=== PATIENT | female | born 1970 | race Caucasian/White ===

== ENCOUNTER → 2016-07-16 | Outpatient (CLI) | payer OTHER | LOC: FIMAGING 14:39 | DX: Z12.31 Encounter for screening mammogram for malignant neoplasm of breast (principal) | CPT/HCPCS: G0202 ==

== ENCOUNTER 2016-09-15 14:54 | Day surgery (SDC) | payer OTHER ==
[2016-09-15] MEDS ORDERED: LIDOCAINE 1% 2 ML INJ ONE (15:19)
[2016-09-15] MEDS ORDERED: LIDOCAINE 1% 5 ML SDV ID PRN (15:21)
[2016-09-15] MEDS ORDERED: LR 1,000 ML IV ONE (15:21)
[2016-09-15] MEDS ORDERED: LIDOCAINE 2% 5 ML SDV ONE (15:22)
[2016-09-15] MEDS ORDERED: PROPOFOL/EMULSION 500 MG/50 ML BOTTLE IV ONE (15:23)
--- NOTE | 2016-09-15 21:03 | GOP ---
[f rep st] OPERATIVE REPORT DATE OF OPERATION: SURGEON: Jasen Barragan MD PREOPERATIVE DIAGNOSIS: Nausea, vomiting. POSTOPERATIVE DIAGNOSIS: 1. Nausea, vomiting. 2. Mild gastritis. PROCEDURE PERFORMED: FINDINGS: INDICATIONS: The patient is a 45-year-old female with acute worsening of chronic nausea and vomitin g, here for upper endoscopy for further evaluation. The risks and the benefits of the procedure wer e discussed with the patient. Consent obtained. Risks include, but not limited to, bleeding, perfo ration, risks associated with sedation. The patient is ASA class 3. DESCRIPTION OF PROCEDURE: The end-viewing endoscope inserted into the esophagus, into stomach and t he second portion of the duodenum. The esophagus is normal. The GE junction is located at 40 cm fr om the incisors. There is no evidence of Worley's esophagitis or varices. The stomach shows diffu se erythema, which is mild. Biopsies are taken using cold biopsy forceps to evaluate for Helicobact er pylori. The duodenum and second portion is normal. Biopsies are taken to evaluate for celiac di sease using cold biopsy forceps. PROCEDURE: Esophagogastroduodenoscopy with biopsies. MEDICATIONS: Monitored anesthesia care. IMPRESSION: 1. Mild stomach gastritis, status post biopsy using cold biopsy forceps. 2. Normal duodenum. 3. Normal esophagus. RECOMMENDATIONS: 1. Discharge home with escort. 2. Advance diet as tolerated. 3. Continue current medications. 4. Follow up with referring provider for nausea, vomiting. 5. Thank you for allowing me to participate in the care of your patient. Please do not hesitate to call with questions. /[id number]/MODL
== END 2016-09-15 16:27 | disposition home or self-care (01) ==
LOC: FSGY 14:54
PROVIDERS: ATTEND Internal Medicine Gastroenterology
PROC: 0DB68ZX Excision of Stomach, Via Natural or Artificial Opening Endoscopic, Diagnostic (ICD-10-PCS; principal; 2016-09-15 16:00)
PROC: 0DB98ZX Excision of Duodenum, Via Natural or Artificial Opening Endoscopic, Diagnostic (ICD-10-PCS; principal; 2016-09-15 16:00)
DX: K29.70 Gastritis, unspecified, without bleeding (principal); K29.80 Duodenitis without bleeding; F31.9 Bipolar disorder, unspecified; E03.9 Hypothyroidism, unspecified; R25.1 Tremor, unspecified
CPT/HCPCS: J2704

== ENCOUNTER 2016-09-19 16:01 | Emergency (ER) | payer OTHER ==
--- NOTE | 2016-09-19 16:19 | EDPHY ---
H & P - Medical/Surgical History Hx Diabetes: No - Social History Smoking Status: Never smoked Constitutional: Initial Vital Signs Temperature (C) 36.5 C 09/19/16 16:01 Heart Rate 87 09/19/16 16:01 Respiratory Rate 12 09/19/16 16:01 Blood Pressure 127/93 H 09/19/16 16:01 O2 Sat (%) 99 09/19/16 16:01 O2 Delivery Mode Room Air Allergies/Adverse Reactions: scopolamine [Scopolamine] Allergy (Severe, Verified 09/12/16 10:31) PSYCHOTIC EPISODES levofloxacin [From Levaquin] Allergy (Verified 09/12/16 10:30) Sulfa (Sulfonamide Antibiotics) Allergy (Verified 09/12/16 10:31) Other-Enter Comments Home Medications: Medication Instructions Recorded Albuterol 07/07/16 CLONAZEPAM 07/07/16 Carisoprodol 07/07/16 Flovent Diskus 07/07/16 Fluconazole 07/07/16 Herbals/Supplements -Info Only 07/07/16 Ketamine 07/07/16 [place] Aspartate 07/07/16 Movantik 07/07/16 Nuedexta 20-10 mg Capsule 07/07/16 PROMETHAZINE HCL 07/07/16 Pantoprazole Sodium 07/07/16 Prazosin HCl 07/07/16 Propranolol HCl 07/07/16 Senna 07/07/16 Sonata 07/07/16 Vyvanse 07/07/16 Zofran 07/07/16 Zyprexa 07/07/16 ARMOUR THYROID 09/12/16 Fentanyl 09/12/16 LAMOTRIGINE 09/12/16 Trileptal 09/12/16 buPROPion 09/12/16 Medical Decision Making ED Course/Re-evaluation: CHIEF COMPLAINT: Polypharmacy overdose HISTORY OF PRESENT ILLNESS: The patient is a 45 y/o female arriving emergently from the [facility] via EMS with somnolence for intentional polypharmacy overdose today. EMS reports she had a suicide note and diary on her bedside with specific research and notes regarding which prescriptions she should take in what quantities to produce a lethal dose. She also had several suicide notes alongside her medications. For EMS, she has been somnolent but oriented and vomiting. For me, she has slurred speech and complains of diarrhea. From patient's journal: "Which order to take the drugs in (most to least lethal) 1. Drink all of my [place] 2. Take all of my soma 3. Take all of my Depakote 4. Take all of my Trazodone Ideally: 5. Take all of my Klonopin 6. Take all of my Prozac 7. Take all of my Wellbutrin 8. Take all of my Zyprexa" REVIEW OF SYSTEMS: A 10 point review of systems was performed and is negative with the exception of the elements mentioned in the history of present illness. PHYSICAL EXAM: General Appearance: Somnolent, well hydrated, Head: Atraumatic without scalp tenderness or obvious injury Eyes: Pupils equal, round, reactive to light and accommodation, EOMI, no trauma , no injection. Nose: Atraumatic, no rhinorrhea, clear. Throat: mucus membranes moist. Neck: Supple, non-tender, no lymphadenopathy. Respiratory: No retractions, no distress, no wheezes, and no accessory muscle use. Lungs are clear to auscultation bilaterally. Cardiovascular: Regular rate and rhythm, no murmurs, rubs, or gallops. Good capillary refill all extremities. Gastrointestinal: Abdomen is soft, non-tender, non-distended, no masses, no rebound, no guarding, no peritoneal signs. Musculoskeletal: Normal active ROM of all extremities, atraumatic. Neurological: Alert, appropriate, and interactive. Slurred speech. Nonfocal neuro exam. Skin: No rashes, good turgor, no nodules on palpation. PAST MEDICAL HISTORY: Bipolar disorder, depression, asthma PAST SURGICAL HISTORY: Unknown SOCIAL HISTORY: Staying in [facility] currently. . DIAGNOSTICS/PROCEDURES/CRITICAL CARE TIME: The 12 lead EKG was interpreted by myself. Sinus rhythm rate 66. See hard copy and/or "tracemaster" electronic copy for interpretation. DIFFERENTIAL DIAGNOSIS: The differential diagnosis for the patient's depression and suicide attempt included but was not limited to intentional polypharm overdose, lithium toxicity, functional and major depression, situational depression, medication side effect, drugs, and alcohol abuse. MEDICAL DECISION MAKING: This is a 45 y/o female with a history of bipolar disorder and depression who presents with somnolence following intentional polypharmacy overdose. Notes on scene that were transported with the patient to the ED show clear pre-mediation of patient's intent to cause lethal overdose. Full list of medications found at the scene and also transferred with the patient below. She is somnolent with slurred speech, but oriented on exam. No gross neurologic deficits and vitals WNL. She will require close management and labs for any medications we are able to check levels on. Most concerning is half of her 8meq/5mL [place] bottle that was filled on 09/03/16 has been consumed. She also has several benzodiazepines, amphetamines, muscle relaxants, antipsychotics, and Suboxone among her medications. No beta blockers were found with her. IV established by EMS. CBC, CHEM, LFTs, phosphorus, Depakote, [place], Salicylate, EtOH, Acetaminophen, and drug tox screen ordered. Patient placed on icing maker. Will continue to run IV fluids and monitor chemistries closely. List of medications found on scene next to patient's suicide note: [place] solution Bupropion Divalproex Prazosin Nuedexta Suboxone carisoprodol fluoxetine/Prozac Zofran amphetamine salts trazodone clonazepam Lamictal olanzapine Vyvanse Zaleplon Singulair armor thyroid Belsomra Linzess 1645: [place] extremely elevated at 6.2. Electrolytes are okay currently. She may require dialysis. Nephrology paged. We have bed shortage here and she may require transfer. 1700: Consulted with Dr. Carlson, construction job cost estimator. She will dialyze patient tonight at [facility]. We will place a dialysis catheter and have her urgently transferred to [facility]. Dr. Silverman, surgeon, will place dialysis catheter prior to transfer. 1715: Spoke with [facility] ED physician, Dr. Silvio Faith. He accepts transfer and confirms they have an ICU bed available for her. Critical care time spent by me, Dr. Cervantes, exclusively with this patient was 60 minutes, exclusive of PA time and exclusive of procedures. The organ system at risk was cardiovascular and neurovascular and I gave IV fluids, glucose, ordered appropriate toxicity levels, reviewed toxicity and management of patient 's multiple medications, and urgently transferred the patient to a construction job cost estimator for dialysis and ICU management at [facility] to prevent worsening of the patient's condition. - Data Points Laboratory Results: Laboratory Results 09/19/16 16:00 09/19/16 16:00 09/19/16 09/19/16 16:00 16:00 WBC 14.68 10^3/uL H 10^3/uL (3.80-9.50) RBC 5.18 10^6/uL 10^6/uL (4.18-5.33) Hgb 15.4 g/dL g/dL (12.6-16.3) Hct 46.7 % % (38.0-47.0) MCV 90.2 fL fL (81.5-99.8) MCH 29.7 pg pg (27.9-34.1) MCHC 33.0 g/dL g/dL (32.4-36.7) RDW 13.3 % % (11.5-15.2) Plt Count 344 10^3/uL 10^3/uL (150-400) MPV 9.6 fL fL (8.7-11.7) Neut % (Auto) 81.2 % H % (39.3-74.2) Lymph % (Auto) 12.9 % L % (15.0-45.0) [place] % (Auto) 4.4 % L % (4.5-13.0) Eos % (Auto) 0.5 % L % (0.6-7.6) Baso % (Auto) 0.4 % % (0.3-1.7) Nucleat RBC Rel Count 0.0 % % (0.0-0.2) Absolute Neuts (auto) 11.91 10^3/uL H 10^3/uL (1.70-6.50) Absolute Lymphs (auto) 1.89 10^3/uL 10^3/uL (1.00-3.00) Absolute Monos (auto) 0.65 10^3/uL 10^3/uL (0.30-0.80) Absolute Eos (auto) 0.08 10^3/uL 10^3/uL (0.03-0.40) Absolute Basos (auto) 0.06 10^3/uL 10^3/uL (0.02-0.10) Absolute Nucleated RBC 0.00 10^3/uL 10^3/uL (0-0.01) Immature Gran % 0.6 % % (0.0-1.1) Immature Gran # 0.09 10^3/uL 10^3/uL (0.00-0.10) Sodium 139 mEq/L mEq/L (134-144) Potassium 4.3 mEq/L mEq/L (3.5-5.2) Chloride 109 mEq/L mEq/L (97-110) Carbon Dioxide 22 mEq/l mEq/l (22-31) Anion Gap 8 mEq/L mEq/L (8-16) BUN 14 mg/dL mg/dL (7-23) Creatinine 0.9 mg/dL mg/dL (0.6-1.0) Estimated GFR > 60 Glucose 67 mg/dL L mg/dL (70-100) Calcium 11.1 mg/dL H mg/dL (8.5-10.4) Phosphorus 2.8 mg/dL mg/dL (2.5-4.5) Salicylates < 1.0 mg/dL L mg/dL (2.0-20.0) Acetaminophen < 10 mcg/mL L mcg/mL (10.0-30.0) Valproic Acid < 10.0 mcg/mL L mcg/mL (50.0-150.0) [place] 6.5 mEq/L H* mEq/L (0.6-1.2) Ethyl Alcohol < 10 mg/dL mg/dL (0-10) Departure - Departure Disposition: Acute Care Hospital [facility] Clinical Impression: Suicide attempt, Polypharmacy [place] toxicity Qualifiers: Encounter type: initial encounter Injury intent: intentional self-harm Qualified Code(s): T56.892A - Toxic effect of other metals, intentional self- harm, initial encounter Overdose Qualifiers: Encounter type: initial encounter Injury intent: intentional self-harm Qualified Code(s): T50.902A - Poisoning by unspecified drugs, medicaments and biological substances, intentional self-harm, initial encounter Condition: Critical Referrals: Patient,NotPresent [Primary Care Provider] - As per Instructions Report Scribed for: Master Cervantes Report Scribed by: Diamond Lynn Date of Report: 09/19/16 Time of Report: 16:46
[2016-09-19 16:27] LABS: % IMMATURE GRANULYOCYTES 0.6 % (0.0-1.1); ABSOLUTE IMMATURE GRANULOCYTES 0.09 10^3/uL (0.00-0.10); ADD DIFF? NO; ADD MORPH? NO; ADD SCAN? NO; ATYPICAL LYMPHOCYTE FLAG 10 (0-99); FRAGMENT RBC FLAG 0 (0-99); HEMATOCRIT 46.7 % (38.0-47.0); HEMOGLOBIN 15.4 g/dL (12.6-16.3); LEFT SHIFT FLG 0 (0-99); LIPEMIA HEMOLYSIS FLAG 80 (0-99); MEAN CELL HEMOGLOBIN 29.7 pg (27.9-34.1); MEAN CELL VOLUME 90.2 fL (81.5-99.8); MEAN PLATELET VOLUME 9.6 fL (8.7-11.7); PLATELET CLUMPS FLAG 20 (0-99); PLATELET COUNT 344 10^3/uL (150-400); RED BLOOD CELL COUNT 5.18 10^6/uL (4.18-5.33); RED CELL DISTRIBUTION WIDTH 13.3 % (11.5-15.2)
--- NOTE | 2016-09-19 16:29 | CPEKG ---
Heart Rate: 66 RR Interval: 909 P-R Interval: 184 QRSD Interval: 108 QT Interval: 432 QTC Interval: 453 P [place]: 41 QRS [place]: -22 T Wave [place]: 47 EKG Severity - NORMAL ECG - EKG Impression: SINUS RHYTHM Electronically Signed By: Master Cervantes 19-Sep-2016 20:38:36
[2016-09-19 16:36] LABS: ANION GAP 8 mEq/L (8-16); CALCIUM 11.1 mg/dL (8.5-10.4); CARBON DIOXIDE 22 mEq/l (22-31); CHLORIDE 109 mEq/L (97-110); CREATININE 0.9 mg/dL (0.6-1.0); ETHANOL SERUM < 10 mg/dL (0-10); GLOMERULAR FILTRATION RATE > 60; GLUCOSE 67 mg/dL (70-100); POTASSIUM 4.3 mEq/L (3.5-5.2); SALICYLATE < 1.0 mg/dL (2.0-20.0); SODIUM 139 mEq/L (134-144)
[2016-09-19 16:37] VITALS: TEMP 97.7
[2016-09-19 16:45] LABS: LITHIUM 6.5 mEq/L (0.6-1.2)
[2016-09-19 17:15] VITALS: BP 119/95; RESP 18; O2SAT 96
[2016-09-19 18:02] VITALS: PULSE 84
--- NOTE | 2016-09-19 21:12 | GCON ---
[f rep st] CONSULTATION DATE OF CONSULTATION: 09/19/2016 CHIEF COMPLAINT: Vander overdose. HISTORY OF PRESENT ILLNESS: This is a 45-year-old female, arriving emergently from the [facility] via emergency responders with somnolence for what appears to be intentional polypharmacy overdo se today. The first responders note that the patient had a suicide note and diarrhea on her bedside with specific research and notes about this for what would constitute a lethal dose. On arrival, she was somnolent but oriented and vomiting. On my arrival, the patient is able to tell me that she is currently having no pain, is aware of person and place, aware of the actions that were undertaken an d that she is currently in the emergency department receiving treatment for those. PAST MEDICAL HISTORY: Bipolar disorder, depression and asthma. PAST SURGICAL HISTORY: Denies. CURRENT MEDICATIONS: Include Prozac, Wellbutrin, Zyprexa, lithium, Soma, Depakote and trazodone. REVIEW OF SYSTEMS: A full 10-point review was performed and, unless explicitly stated, is otherwise negative. FAMILY HISTORY: Noncontributory. SOCIAL HISTORY: Staying at the [facility] currently. . Denies illicit drug use. PHYSICAL EXAMINATION: VITAL SIGNS: Temperature 36.5, blood pressure 119/95, heart rate 82, and she is 96% on room air. GENERAL: She is somnolent but alert, in no acute distress. HEENT: Her pupils are equal, round, and reactive to light. Mouth: Mucous membranes appear dry. NECK: Supple. Soft . No crepitus. Nontender. CHEST: Nontender to palpation. No obvious signs of injury. LUNGS: Benja ar to auscultation bilaterally. CV: Regular rate and rhythm. ABDOMEN: Soft, nondistended, nontend er. MUSCULOSKELETAL: Active range and strength in all upper and lower extremities. NEUROLOGIC: Patricia rt, slurred. PSYCH: Clear psychiatric history. Currently suicidal. SKIN: No rashes. She does appear to have some redness on her chest. Unclear whether or not this is related to the medications or the treatment here in the emergency department. CURRENT LABORATORY DATA: White blood cell count 15, H and H normal at 15 and 46. Chemistries show a n elevated calcium at 11 and a low glucose at 67. Toxicology shows high lithium level at 6.5. Salicy lates, acetaminophen, valproic acid and ethyl alcohol level are all normal. IMAGING: None. ASSESSMENT AND PLAN: A 45-year-old female, status post suicide attempt with lithium overdose. I was asked by the emergency department to place a temporary dialysis catheter for emergent dialysis. Af ter counseling the patient, I do feel that she is an appropriate candidate and will proceed urgently with this in the emergency department. I explained the risks, benefits, and alternatives with the patient and her . She is somnolent. Her successfully signed and discussed my plan wi th the treating emergency department physician, Dr. Cervantes. We will plan for ultrasound-guided beds cherrie placement urgently. /[id number]/MODL
--- NOTE | 2016-09-19 21:47 | GOP ---
[f rep st] OPERATIVE REPORT DATE OF OPERATION: 09/19/2016 SURGEON: Arash Silverman MD FINISH INSPECTOR: None. ANESTHESIA: Local consisting of 1% lidocaine. PREOPERATIVE DIAGNOSIS: Adrian overdose. POSTOPERATIVE DIAGNOSIS: Adrian overdose. PROCEDURE PERFORMED: Right internal jugular ultrasound-guided temporary dialysis catheter placement . FINDINGS: Successful cannulation of right internal jugular vein under ultrasound guidance. Mahurka r 16 cm temporary dialysis catheter successfully placed. All ports flushed appropriately and all por ts were heparin locked at the end of the procedure. SPECIMENS: None. ESTIMATED BLOOD LOSS: 5 cc. DESCRIPTION OF PROCEDURE: The patient was greeted in the emergency department. After explaining th e risks, benefits, and alternatives to her and her , the consent was signed. Her right neck was then prepped and draped in typical sterile fashion. Using the ultrasound, I identified the righ t internal jugular vein. Just above it in the subcutaneous tissue and overlying sternocleidomastoid muscle, I created a field block using 1% lidocaine. After this was done, I successfully accessed th e internal jugular vein using a needle under Seldinger technique. I threaded my guidewire will stubbs over which I serially dilated. Once successfully dilated, I placed the catheter successfully int o the patient's internal jugular vein without issue. My guidewire was removed. The ports all withdre w and flushed appropriately. They were first flushed with saline and then heparin locked appropriate ly. A Biopatch was placed. The catheter was then attached to the patient's skin with interrupted ny dominique sutures, and a sterile dressing was placed. The patient tolerated the procedure well without an y intraoperative complications. DRAINS: None. /[id number]/MODL
== END 2016-09-19 18:02 | disposition short-term general hospital (02) ==
LOC: EDUNIT#
DX: T56.892A Toxic effect of other metals, intentional self-harm, initial encounter (principal); T50.902A Poisoning by unspecified drugs, medicaments and biological substances, intentional self-harm, initial encounter; J45.909 Unspecified asthma, uncomplicated
CPT/HCPCS: 71010; 93005; J1642; G0480

== ENCOUNTER → 2017-07-17 | Outpatient (CLI) | payer OTHER | LOC: FIMAGING 10:34 | PROVIDERS: ATTEND Internal Medicine | DX: Z12.31 Encounter for screening mammogram for malignant neoplasm of breast (principal); Z80.3 Family history of malignant neoplasm of breast ==

== ENCOUNTER → 2018-08-16 | Outpatient (CLI) | payer OTHER | LOC: FIMAGING 13:49 | PROVIDERS: ATTEND Internal Medicine | DX: Z12.31 Encounter for screening mammogram for malignant neoplasm of breast (principal); Z80.3 Family history of malignant neoplasm of breast ==